=== PATIENT | female | born 1955 | race Caucasian/White ===

== ENCOUNTER → 2016-05-27 | Outpatient (CLI) | payer OTHER ==
[~2016-05-27] MED LIST: COLACE100 MG PO; DULCOLAX STOOL100 MG PO; FISH OIL 1,001000 M2 PO; PERCOCET 10-321 EACH PO; TYLENOL P.M. E1 EAC3 PO; UNICOMPLEX M TA1 TA1 PO; XARELTO10 MG PO; ZYRTEC 10 MG TA10 MG PO
== END ==
LOC: RAD 05-20 16:04
DX: Z12.31 Encounter for screening mammogram for malignant neoplasm of breast (principal)

== ENCOUNTER → 2016-05-30 | Outpatient (CLI) | payer OTHER ==
--- NOTE | ~2016-05-30 | EKG ---
[address] [address] ELECTROCARDIOGRAM REPORT Name: MARIS FARNSWORTH Lynsey Room #: REG ANNAMARIE Juanjose#: [id number] Admission: 05/30/16 Attend Phys: Ash Augustin MD Discharge: Date of : 59 Report #: [id number] THIS REPORT FOR: //name// [facility] Test Date: 2016-06-02 Test Time: 09:58:13 Pat Name: MARIS FARNSWORTH Department: Room: Gender: F Barrel Reamer: Jono LIRA : 1955 Requested By: Ash Augustin Order Number: [id number] MD: Eloy Loera Measurements Intervals [place] Rate: 69 P: 72 NH: 135 QRS: 49 QRSD: 95 T: 59 QT: 405 QTc: 434 Interpretive Statements Sinus rhythm No previous ECG available for comparison Electronically Signed On 06-02-2016 11:21:56 ASSOCIATE PASTOR by Eloy Loera [email or web address] <ELECTRONICALLY SIGNED> By: Eloy Loera MD 06/02/16 1121 0958 0958 Eloy Loera MD /BEENA
== END ==
LOC: HYPER 07:59
DX: T81.31XD Disruption of external operation (surgical) wound, not elsewhere classified, subsequent encounter (principal); M19.90 Unspecified osteoarthritis, unspecified site; Z85.828 Personal history of other malignant neoplasm of skin; Y83.8 Other surgical procedures as the cause of abnormal reaction of the patient, or of later complication, without mention of misadventure at the time of the procedure

== ENCOUNTER → 2016-06-02 | Outpatient (CLI) | payer OTHER ==
--- NOTE | ~2016-06-02 | EKG ---
[address] [address] ELECTROCARDIOGRAM REPORT Name: MARIS FARNSWORTH Lynsey [facility] #[id number] Admission: 06/02/16 Attend Phys: Ash Augustin MD Discharge: Date of : 59 Report #: [id number] THIS REPORT FOR: //name// [facility] Test Date: 2016-06-02 Test Time: 09:58:13 Pat Name: MARIS FARNSWORTH Department: Room: Gender: F Production Internship: Jono LIRA : 1955 Requested By: Ash Augustin Order Number: [id number] MD: Eloy Loera Measurements Intervals [place] Rate: 69 P: 72 HI: 135 QRS: 49 QRSD: 95 T: 59 QT: 405 QTc: 434 Interpretive Statements Sinus rhythm Electronically Signed On 06-02-2016 11:21:56 SEPHORA OPERATIONS CONSULTANT by Eloy Loera No previous ECG available for comparison Electronically Signed On 06-03-2016 15:55:26 SEPHORA OPERATIONS CONSULTANT by Eloy Loera [email or web address] <ELECTRONICALLY SIGNED> By: Eloy Loera MD 06/03/16 1555 0958 0958 Eloy Loera MD /BEENA
== END ==
LOC: RAD 09:15
DX: C92 Myeloid leukemia (principal); T81.89XA Other complications of procedures, not elsewhere classified, initial encounter; T81.30XA Disruption of wound, unspecified, initial encounter

== ENCOUNTER → 2016-06-16 | Outpatient (CLI) | payer OTHER | LOC: HYPER 06:57 | DX: T81.31XA Disruption of external operation (surgical) wound, not elsewhere classified, initial encounter (principal); C92 Myeloid leukemia; L59.8 Other specified disorders of the skin and subcutaneous tissue related to radiation; Y83.8 Other surgical procedures as the cause of abnormal reaction of the patient, or of later complication, without mention of misadventure at the time of the procedure ==

== ENCOUNTER → 2016-08-04 | Outpatient (CLI) | payer OTHER | LOC: HYPER 08-03 15:45 | DX: T81.31XD Disruption of external operation (surgical) wound, not elsewhere classified, subsequent encounter (principal); M19.90 Unspecified osteoarthritis, unspecified site; Z85.828 Personal history of other malignant neoplasm of skin; Z96.651 Presence of right artificial knee joint; Y83.8 Other surgical procedures as the cause of abnormal reaction of the patient, or of later complication, without mention of misadventure at the time of the procedure ==

== ENCOUNTER → 2016-08-11 | Outpatient (CLI) | payer OTHER | LOC: HYPER 07:05 | DX: T81.31XA Disruption of external operation (surgical) wound, not elsewhere classified, initial encounter (principal); L59.8 Other specified disorders of the skin and subcutaneous tissue related to radiation; C92 Myeloid leukemia; M19.90 Unspecified osteoarthritis, unspecified site; Y83.8 Other surgical procedures as the cause of abnormal reaction of the patient, or of later complication, without mention of misadventure at the time of the procedure ==

== ENCOUNTER → 2016-08-18 | Outpatient (CLI) | payer OTHER | LOC: HYPER 06:56 | DX: T81.31XD Disruption of external operation (surgical) wound, not elsewhere classified, subsequent encounter (principal); M19.90 Unspecified osteoarthritis, unspecified site; Z85.828 Personal history of other malignant neoplasm of skin; Z96.651 Presence of right artificial knee joint; Y83.8 Other surgical procedures as the cause of abnormal reaction of the patient, or of later complication, without mention of misadventure at the time of the procedure ==

== ENCOUNTER → 2016-08-26 | Outpatient (CLI) | payer OTHER | LOC: HYPER 16:28 | DX: T81.31XA Disruption of external operation (surgical) wound, not elsewhere classified, initial encounter (principal); L59.8 Other specified disorders of the skin and subcutaneous tissue related to radiation; C92 Myeloid leukemia; M19.90 Unspecified osteoarthritis, unspecified site; Y83.8 Other surgical procedures as the cause of abnormal reaction of the patient, or of later complication, without mention of misadventure at the time of the procedure ==

== ENCOUNTER → 2016-08-29 | Outpatient (CLI) | payer OTHER | LOC: HYPER 08:22 | DX: T81.31XD Disruption of external operation (surgical) wound, not elsewhere classified, subsequent encounter (principal); L59.8 Other specified disorders of the skin and subcutaneous tissue related to radiation; M19.90 Unspecified osteoarthritis, unspecified site; Z96.651 Presence of right artificial knee joint; Z85.831 Personal history of malignant neoplasm of soft tissue; Y83.8 Other surgical procedures as the cause of abnormal reaction of the patient, or of later complication, without mention of misadventure at the time of the procedure; Y84.2 Radiological procedure and radiotherapy as the cause of abnormal reaction of the patient, or of later complication, without mention of misadventure at the time of the procedure ==

== ENCOUNTER → 2016-09-03 | Outpatient (CLI) | payer OTHER | LOC: HYPER 07:06 | DX: T81.31XD Disruption of external operation (surgical) wound, not elsewhere classified, subsequent encounter (principal); L59.8 Other specified disorders of the skin and subcutaneous tissue related to radiation; M19.90 Unspecified osteoarthritis, unspecified site; Z85.828 Personal history of other malignant neoplasm of skin; Y84.2 Radiological procedure and radiotherapy as the cause of abnormal reaction of the patient, or of later complication, without mention of misadventure at the time of the procedure ==

== ENCOUNTER → 2016-09-15 | Outpatient (CLI) | payer OTHER | LOC: HYPER 07:09 | DX: T81.31XD Disruption of external operation (surgical) wound, not elsewhere classified, subsequent encounter (principal); M19.90 Unspecified osteoarthritis, unspecified site; Z96.651 Presence of right artificial knee joint; Z85.831 Personal history of malignant neoplasm of soft tissue; Y83.8 Other surgical procedures as the cause of abnormal reaction of the patient, or of later complication, without mention of misadventure at the time of the procedure ==

== ENCOUNTER → 2016-09-29 | Outpatient (CLI) | payer OTHER | LOC: HYPER 07:05 | DX: T81.31XA Disruption of external operation (surgical) wound, not elsewhere classified, initial encounter (principal); C92 Myeloid leukemia; L59.8 Other specified disorders of the skin and subcutaneous tissue related to radiation; M19.90 Unspecified osteoarthritis, unspecified site; Y83.8 Other surgical procedures as the cause of abnormal reaction of the patient, or of later complication, without mention of misadventure at the time of the procedure ==

== ENCOUNTER → 2016-10-17 | Outpatient (CLI) | payer OTHER | LOC: HYPER 07:54 | DX: T81.31XA Disruption of external operation (surgical) wound, not elsewhere classified, initial encounter (principal); L59.8 Other specified disorders of the skin and subcutaneous tissue related to radiation; C92 Myeloid leukemia; M19.90 Unspecified osteoarthritis, unspecified site; Z85.828 Personal history of other malignant neoplasm of skin; Y83.8 Other surgical procedures as the cause of abnormal reaction of the patient, or of later complication, without mention of misadventure at the time of the procedure ==

== ENCOUNTER → 2016-10-27 | Outpatient (CLI) | payer OTHER | LOC: HYPER 07:15 | DX: T81.31XD Disruption of external operation (surgical) wound, not elsewhere classified, subsequent encounter (principal); C92 Myeloid leukemia; L59.8 Other specified disorders of the skin and subcutaneous tissue related to radiation; M19.90 Unspecified osteoarthritis, unspecified site; Z85.828 Personal history of other malignant neoplasm of skin; Y83.8 Other surgical procedures as the cause of abnormal reaction of the patient, or of later complication, without mention of misadventure at the time of the procedure ==

== ENCOUNTER → 2016-11-10 | Outpatient (CLI) | payer OTHER | LOC: HYPER 07:00 | DX: T81.31XD Disruption of external operation (surgical) wound, not elsewhere classified, subsequent encounter (principal); M19.90 Unspecified osteoarthritis, unspecified site; Z85.831 Personal history of malignant neoplasm of soft tissue; Z85.6 Personal history of leukemia; Z96.651 Presence of right artificial knee joint; Y83.8 Other surgical procedures as the cause of abnormal reaction of the patient, or of later complication, without mention of misadventure at the time of the procedure ==

== ENCOUNTER → 2016-11-24 | Outpatient (CLI) | payer OTHER | LOC: HYPER 06:53 | DX: T81.31XD Disruption of external operation (surgical) wound, not elsewhere classified, subsequent encounter (principal); M19.90 Unspecified osteoarthritis, unspecified site; L59.8 Other specified disorders of the skin and subcutaneous tissue related to radiation; Z96.651 Presence of right artificial knee joint; Z85.831 Personal history of malignant neoplasm of soft tissue; Y83.8 Other surgical procedures as the cause of abnormal reaction of the patient, or of later complication, without mention of misadventure at the time of the procedure ==

== ENCOUNTER → 2016-12-08 | Outpatient (CLI) | payer OTHER | LOC: HYPER 06:48 | DX: T81.31XA Disruption of external operation (surgical) wound, not elsewhere classified, initial encounter (principal); L59.8 Other specified disorders of the skin and subcutaneous tissue related to radiation; M19.90 Unspecified osteoarthritis, unspecified site; Z85.828 Personal history of other malignant neoplasm of skin; Y83.8 Other surgical procedures as the cause of abnormal reaction of the patient, or of later complication, without mention of misadventure at the time of the procedure ==

== ENCOUNTER → 2016-12-16 | Outpatient (CLI) | payer OTHER ==
[2016-12-16 07:50] LABS: ABSOLUTE NEUTROPHILS 3.1 thou/uL (1.4-8.2); BASOPHILS 1.2 % (0.0-2.0); EOSINOPHILS 3.3 % (0.0-3.0); HEMATOCRIT 38.4 % (37.0-47.0); HEMOGLOBIN 13.3 gm/dL (12.0-15.0); LYMPHOCYTES 32.3 % (24.0-44.0); MCH 29.2 pg (26.0-34.0); MCHC 34.5 g/dL (28.0-37.0); MCV 84.7 fL (80.0-100.0); MONOCYTES 5.7 % (1.0-8.0); PLATELET COUNT 257 thou/uL (150-400); POLYS 57.5 % (36.0-66.0); RBC 4.54 mil/uL (4.20-5.00); RDW 13.3 % (10.5-14.5); WBC 5.4 thou/uL (4.0-11.0)
[2016-12-16 07:51] LABS: MANUAL DIFF NO
[2016-12-16 08:01] LABS: CALCIUM 9.1 mg/dL (8.5-10.1); CREATININE 0.8 mg/dL (0.6-1.0); POTASSIUM 4.4 mmol/L (3.5-5.1)
[2016-12-16 08:07] LABS: ALBUMIN 3.8 g/dL (3.4-5.0); TOTAL BILIRUBIN 0.5 mg/dL (<0.1-1.0)
== END ==
LOC: CAT 07:10
PROVIDERS: Internal Medicine Hematology & Oncology
DX: C49.22 Malignant neoplasm of connective and soft tissue of left lower limb, including hip (principal); E07.9 Disorder of thyroid, unspecified; T81.30XA Disruption of wound, unspecified, initial encounter

== ENCOUNTER → 2016-12-22 | Outpatient (CLI) | payer OTHER | LOC: HYPER 06:54 | DX: T81.31XD Disruption of external operation (surgical) wound, not elsewhere classified, subsequent encounter (principal); C92 Myeloid leukemia; L59.8 Other specified disorders of the skin and subcutaneous tissue related to radiation; M19.90 Unspecified osteoarthritis, unspecified site; Y83.8 Other surgical procedures as the cause of abnormal reaction of the patient, or of later complication, without mention of misadventure at the time of the procedure ==

== ENCOUNTER → 2016-12-25 | Outpatient (CLI) | payer OTHER | LOC: MRI 07:05 | DX: Z87.898 Personal history of other specified conditions (principal) ==

== ENCOUNTER → 2017-01-06 | Outpatient (CLI) | payer OTHER | LOC: HYPER 07:04 | DX: T81.31XD Disruption of external operation (surgical) wound, not elsewhere classified, subsequent encounter (principal); L59.8 Other specified disorders of the skin and subcutaneous tissue related to radiation; C92 Myeloid leukemia; M19.90 Unspecified osteoarthritis, unspecified site; Y83.8 Other surgical procedures as the cause of abnormal reaction of the patient, or of later complication, without mention of misadventure at the time of the procedure ==

== ENCOUNTER → 2017-01-20 | Outpatient (CLI) | payer OTHER | LOC: HYPER 07:23 | DX: T81.31XD Disruption of external operation (surgical) wound, not elsewhere classified, subsequent encounter (principal); L59.8 Other specified disorders of the skin and subcutaneous tissue related to radiation; M19.90 Unspecified osteoarthritis, unspecified site; Z96.651 Presence of right artificial knee joint; Z85.831 Personal history of malignant neoplasm of soft tissue; Y83.8 Other surgical procedures as the cause of abnormal reaction of the patient, or of later complication, without mention of misadventure at the time of the procedure ==

== ENCOUNTER → 2017-01-28 | Outpatient (CLI) | payer OTHER | LOC: HYPER 06:43 | DX: T81.31XD Disruption of external operation (surgical) wound, not elsewhere classified, subsequent encounter (principal); L59.8 Other specified disorders of the skin and subcutaneous tissue related to radiation; C92 Myeloid leukemia; M19.90 Unspecified osteoarthritis, unspecified site; Z96.651 Presence of right artificial knee joint; Y83.8 Other surgical procedures as the cause of abnormal reaction of the patient, or of later complication, without mention of misadventure at the time of the procedure; Y84.2 Radiological procedure and radiotherapy as the cause of abnormal reaction of the patient, or of later complication, without mention of misadventure at the time of the procedure ==

== ENCOUNTER → 2017-02-23 | Outpatient (CLI) | payer OTHER | LOC: HYPER 06:57 | DX: T81.31XD Disruption of external operation (surgical) wound, not elsewhere classified, subsequent encounter (principal); L59.8 Other specified disorders of the skin and subcutaneous tissue related to radiation; C92 Myeloid leukemia; M19.90 Unspecified osteoarthritis, unspecified site; Y83.8 Other surgical procedures as the cause of abnormal reaction of the patient, or of later complication, without mention of misadventure at the time of the procedure ==

== ENCOUNTER → 2017-03-16 | Outpatient (CLI) | payer OTHER | LOC: HYPER 06:48 | DX: T81.31XD Disruption of external operation (surgical) wound, not elsewhere classified, subsequent encounter (principal); L59.8 Other specified disorders of the skin and subcutaneous tissue related to radiation; C92 Myeloid leukemia; M19.90 Unspecified osteoarthritis, unspecified site; Y84.2 Radiological procedure and radiotherapy as the cause of abnormal reaction of the patient, or of later complication, without mention of misadventure at the time of the procedure; Y83.8 Other surgical procedures as the cause of abnormal reaction of the patient, or of later complication, without mention of misadventure at the time of the procedure ==

== ENCOUNTER → 2017-04-02 | Outpatient (CLI) | payer OTHER | LOC: HYPER 08:10 | DX: T81.31XD Disruption of external operation (surgical) wound, not elsewhere classified, subsequent encounter (principal); M19.90 Unspecified osteoarthritis, unspecified site; Z85.831 Personal history of malignant neoplasm of soft tissue; Z96.651 Presence of right artificial knee joint; Y83.8 Other surgical procedures as the cause of abnormal reaction of the patient, or of later complication, without mention of misadventure at the time of the procedure ==

== ENCOUNTER → 2017-04-08 | Outpatient (CLI) | payer OTHER | LOC: HYPER 07:00 | DX: T81.31XD Disruption of external operation (surgical) wound, not elsewhere classified, subsequent encounter (principal); C92 Myeloid leukemia; L59.8 Other specified disorders of the skin and subcutaneous tissue related to radiation; M19.90 Unspecified osteoarthritis, unspecified site; Z96.651 Presence of right artificial knee joint; Y83.8 Other surgical procedures as the cause of abnormal reaction of the patient, or of later complication, without mention of misadventure at the time of the procedure; Y84.2 Radiological procedure and radiotherapy as the cause of abnormal reaction of the patient, or of later complication, without mention of misadventure at the time of the procedure ==

== ENCOUNTER → 2017-04-15 | Outpatient (CLI) | payer OTHER | LOC: HYPER 07:56 | DX: L59.8 Other specified disorders of the skin and subcutaneous tissue related to radiation (principal); M19.90 Unspecified osteoarthritis, unspecified site; Y83.8 Other surgical procedures as the cause of abnormal reaction of the patient, or of later complication, without mention of misadventure at the time of the procedure; Z85.828 Personal history of other malignant neoplasm of skin; T81.31XD Disruption of external operation (surgical) wound, not elsewhere classified, subsequent encounter ==

== ENCOUNTER → 2017-04-21 | Outpatient (CLI) | payer OTHER | LOC: CAT | DX: C49.22 Malignant neoplasm of connective and soft tissue of left lower limb, including hip (principal); E04.2 Nontoxic multinodular goiter; R07.9 Chest pain, unspecified ==

== ENCOUNTER → 2017-04-29 | Outpatient (CLI) | payer OTHER | LOC: HYPER 06:44 | DX: T81.31XD Disruption of external operation (surgical) wound, not elsewhere classified, subsequent encounter (principal); L59.8 Other specified disorders of the skin and subcutaneous tissue related to radiation; M19.90 Unspecified osteoarthritis, unspecified site; Z96.651 Presence of right artificial knee joint; Y83.8 Other surgical procedures as the cause of abnormal reaction of the patient, or of later complication, without mention of misadventure at the time of the procedure; Y84.2 Radiological procedure and radiotherapy as the cause of abnormal reaction of the patient, or of later complication, without mention of misadventure at the time of the procedure ==

== ENCOUNTER → 2017-05-06 | Outpatient (CLI) | payer OTHER ==
[~2017-05-06] MED LIST changes: +CENTRUM SILVER1 EAC4 PO
== END ==
LOC: HYPER 06:49
DX: T81.31XD Disruption of external operation (surgical) wound, not elsewhere classified, subsequent encounter (principal); L59.8 Other specified disorders of the skin and subcutaneous tissue related to radiation; M19.90 Unspecified osteoarthritis, unspecified site; Z96.651 Presence of right artificial knee joint; Z85.828 Personal history of other malignant neoplasm of skin; Y84.2 Radiological procedure and radiotherapy as the cause of abnormal reaction of the patient, or of later complication, without mention of misadventure at the time of the procedure; Y83.8 Other surgical procedures as the cause of abnormal reaction of the patient, or of later complication, without mention of misadventure at the time of the procedure

== ENCOUNTER → 2017-05-12 | Outpatient (CLI) | payer OTHER | LOC: HYPER 06:55 | DX: T81.31XD Disruption of external operation (surgical) wound, not elsewhere classified, subsequent encounter (principal); S71.102D Unspecified open wound, left thigh, subsequent encounter; M19.90 Unspecified osteoarthritis, unspecified site; Z96.651 Presence of right artificial knee joint; Z85.828 Personal history of other malignant neoplasm of skin; Y83.8 Other surgical procedures as the cause of abnormal reaction of the patient, or of later complication, without mention of misadventure at the time of the procedure ==

== ENCOUNTER → 2017-05-20 | Outpatient (CLI) | payer OTHER ==
[~2017-05-20] MED LIST changes: +SENNA8.6 MG PO
== END ==
LOC: HYPER
DX: T81.31XD Disruption of external operation (surgical) wound, not elsewhere classified, subsequent encounter (principal); L59.8 Other specified disorders of the skin and subcutaneous tissue related to radiation; M19.90 Unspecified osteoarthritis, unspecified site; Z85.828 Personal history of other malignant neoplasm of skin; Y83.8 Other surgical procedures as the cause of abnormal reaction of the patient, or of later complication, without mention of misadventure at the time of the procedure

== ENCOUNTER 2017-05-25 01:32 | Inpatient (IN) | payer OTHER ==
[2017-05-13 11:39] LABS: URINE BILIRUBIN NEGATIVE (Negative); URINE BLOOD NEGATIVE (Negative); URINE CLARITY CLEAR; URINE COLOR YELLOW; URINE GLUCOSE-RANDOM* NEGATIVE (Negative); URINE KETONES NEGATIVE (Negative); URINE LEUKOCYTES-REFLEX NEGATIVE (Negative); URINE NITRITE-REFLEX NEGATIVE (Negative); URINE PROTEIN (DIPSTICK) NEGATIVE (Negative); URINE UROBILINOGEN 0.2 E.U./dl (0.2-1.0)
[2017-05-13 11:43] LABS: HEMATOCRIT 39.4 % (37.0-47.0); HEMOGLOBIN 13.1 gm/dL (12.0-15.0); MCH 28.4 pg (26.0-34.0); MCHC 33.2 g/dL (28.0-37.0); MCV 85.6 fL (80.0-100.0); RBC 4.61 mil/uL (4.20-5.00); RDW 13.8 % (10.5-14.5); WBC 7.5 thou/uL (4.0-11.0)
[2017-05-13 11:59] LABS: ALBUMIN 3.9 g/dL (3.4-5.0); CALCIUM 9.4 mg/dL (8.5-10.1); CREATININE 0.7 mg/dL (0.6-1.0); POTASSIUM 4.5 mmol/L (3.5-5.1)
[2017-05-13 12:06] LABS: PROTIME 10.4 Seconds (9.3-11.4)
[~2017-05-25] VITALS: Ht 165.1 cm; Wt 103.0 kg
--- NOTE | ~2017-05-25 | O ---
[facility] [place] [address] OPERATIVE REPORT Name: MARIS FARNSWORTH Room #: 150-10 ADM IN M.R.#: [id number] Admission: 05/25/17 Attend Phys: Jose Maria Escalante MD Discharge: Date of : 59 Report #: [id number] THIS REPORT FOR: //name// CC: Jose Maria Dutta DATE OF SERVICE: 05/25/2017 PREOPERATIVE DIAGNOSIS: End-stage degenerative arthritis, left knee. POSTOPERATIVE DIAGNOSIS: End-stage degenerative arthritis, left knee. PROCEDURE: Left total knee arthroplasty. SURGEON: Jose Maria Escalante MD. 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 She has developed gradually progressive degenerative arthritis in both knees and underwent right total knee replacement in the past with good result. 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 We have elected to go ahead with her knee replacement at this point. We have discussed that she is at slightly increased risk for postoperative problems or infection given this history; however, it appears that wound has healed in nicely, and there is no evidence of infection nor any other significant ongoing problems at this point. DESCRIPTION OF PROCEDURE: The patient was taken to the operating room where she was placed under general anesthesia. Prophylactic intravenous antibiotics were administered. The left leg was carefully prepped and draped. The small superficial wound at the posterior thigh was carefully cleaned and then covered with a sterile dressing. This dressing was then included in the prep to create a fully sterile field. The stockinette was used to exclude the posterior aspect of the thigh from the area of surgery further limiting any potential for contamination. A thigh tourniquet was inflated to 300 mmHg. An anterior longitudinal skin incision was made and carried through the medial parapatellar retinaculum. The patella was reflected laterally where the marked degenerative change in all 3 compartments was noted. This was particularly severe at the patella where she also has a very atrophic patella with a very thin patella measuring only about 12-14 mm in thickness. The ustyme and yeppt knee system was utilized. Intramedullary guides were used on both the femur and the tibia. The femur was cut in 5 degrees of valgus and the tibia cut perpendicular to the long axis of the bone. The femur seemed best suited for a size [address] [address] OPERATIVE REPORT Name: MARIS FARNSWORTH Room #: 150-10 [facility] IN .R.#: [id number] Admission: 05/25/17 Attend Phys: Jose Maria Escalante MD Discharge: Date of : 59 Report #: [id number] component. The tibia was best suited for a size 3 tibial component, a 9 mm polyethylene insert fit nicely. This resulted in full knee extension and satisfactory stability through a full arc of motion with flexion beyond 130 degrees. The patellar surface was very carefully resected given the very delicate thin nature of her patella. A 32 mm patellar button seemed to fit nicely and appropriate anchor holes were created. Once the trial reduction was completed, the knee was passed through a full arc of motion, and the patella seemed to tip slightly laterally. A limited lateral retinacular release was performed which seemed to improve this nicely. The trial components were removed. The bony surfaces were thoroughly irrigated and dried. The intramedullary canal was blocked with bone block on both the femoral and tibial sides. The size 3 Jasmin left nonporous tibial base plate was inserted into the proximal tibia using methyl methacrylate cement. This seated nicely and appeared to be secure. Excess cement was removed from around its margin. The 9 mm polyethylene insert was then inserted using the Legion cruciate retaining high flexion insert. This seated nicely and appeared to be secure. The size 4 left cruciate retaining Legion femoral component was then inserted on to the distal femur. It was impacted into position using appropriate anchor holes and a small amount of cement at the distal aspect. This seated nicely and appeared to be secure. Excess cement was removed from around its margin. The patella was resurfaced using a 32 mm patellar button using the Jasmin II Negrete and Nephew component with appropriate anchor holes and methyl methacrylate cement. The implant was secured with a patellar clamp until the cement had fully hardened. Once the cement was firm, alignment, range of motion and stability were once again assessed. The knees demonstrated full knee extension and flexion beyond 130 degrees with satisfactory stability. The patella seemed to track nicely and appeared to be stable. A single Hemovac was left in the wound exiting through a separate stab incision. The tourniquet was then deflated after a total tourniquet time of 58 minutes. The fascia was closed with multiple #1 Vicryl sutures. The subcutaneous tissues were closed with 0 Monocryl. The skin was closed with skin montserrat. A sterile dressing was applied. The patient was awakened and returned to recovery room in good condition. <ELECTRONICALLY SIGNED> By: Jose Maria Escalante MD 05/25/17 1258 1157 1243 Jose Maria Escalante MD /parish
--- NOTE | ~2017-05-25 | D ---
[facility] [place] [address] DISCHARGE SUMMARY Name: MARIS FARNSWORTH Room #: 405-P [facility] IN M.R.#: [id number] Admission: 05/25/17 Attend Phys: Jose Maria Escalante MD Discharge: 05/29/17 Date of : 59 Report #: [id number] THIS REPORT FOR: //name// CC: Jose Maria Dutta DATE OF SERVICE: 05/29/2017 FINAL DIAGNOSES: 1. End-stage degenerative arthritis of left knee. 2. Peroneal neurapraxia. OPERATIVE PROCEDURE: Left total knee arthroplasty. HISTORY: This fit, active 61-year-old female has progressive degenerative arthritis in both knees. She underwent a right total knee replacement in the past with good result. She was planning to go ahead with the left side, but this was delayed due to a myosarcoma, which was diagnosed and removed from the posterior aspect of the left thigh about 1 year ago. She had radiation treatment and a slowly healing wound, which delayed further care with regard to the knee. This has nearly closed leaving small clean, granulating bed and she is felt safe to go ahead with left total knee replacement at this time. HOSPITAL COURSE: The patient was admitted and taken to the operating room. On 05/25/2017, she underwent left total knee arthroplasty, which in general went well. There were no apparent problems or complications. Postoperatively, however, she has had rather significant weakness with dorsiflexion of the left foot, suggesting a peroneal neurapraxia. I have noted that we had a fairly low pressure tourniquet at 300 mmHg and the tourniquet was up for a less than 60 minutes. There were no other unusual problems during the procedure. The clinical findings and x-rays I have looked good. She did make good progress with therapy and rapidly achieved independent ambulation, but is frustrated with her dorsiflexion weakness making her ambulation a bit more awkward. Aside from that weakness, however, she seems to have good strength at the hip and improving strength at the quadriceps with good knee range of motion. She has good plantar flexion strength and sensation throughout the leg including distribution of the peroneal nerve over the calf and dorsum of the foot appeared to be normal. Her pain has been well controlled with oral analgesics. She does have mild constipation, but this seems to be improving with stool softeners and mild gentle laxatives. She spent 1 extra night given the weakness and some difficulty with ambulation, but today, she feels she is making satisfactory progress and anticipate she can make adequate progress at home with the assistance of home visiting therapy. 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 Therefore, I am confident she and her other co-workers can make excellent progress with a home therapy program. [address] [address] DISCHARGE SUMMARY Name: MARIS FARNSWORTH Room #: 405-P DIS IN M.R.#: [id number] Admission: 05/25/17 Attend Phys: Jose Maria Escalante MD Discharge: 05/29/17 Date of : 59 Report #: [id number] DISCHARGE MEDICATIONS: Include Xarelto 10 mg daily, hydrocodone 10/325 one q.4h. p.r.n. for pain, Colace 100 mg b.i.d. She will continue a regular diet. She will advance activities as comfort and strength will allow, to continue therapy at home with weightbearing as tolerated and work on range of motion and strengthening. I have asked her to call me should there be any problems over the coming weekend and we will plan to see her back in the office on either Thursday or Thursday simply to check up on her progress at that point. <ELECTRONICALLY SIGNED> By: Jose Maria Escalante MD 06/01/17 0741 1533 1819 Jose Maria Escalante MD /nt
--- NOTE | ~2017-05-25 | HC ---
[facility] [address] [place] [address] CONSULTATION Name: MARIS FARNSWORTH Room #: 405-P [facility] IN M.R.#: [id number] Admission: 05/25/17 Attend Phys: Jose Maria Escalante MD Discharge: Date of : 59 Report #: [id number] THIS REPORT FOR: //name// CC: Jose Maria Dutta DATE OF SERVICE: 05/26/2017 PERSONAL PHYSICIAN: None on staff. CHIEF COMPLAINT: Left posterior thigh wound. HISTORY OF PRESENT ILLNESS: This is a 61-year-old white female who we have been following in the outpatient wound clinic for several months for a surgical wound in the left posterior thigh region secondary to removal of a sarcoma and subsequent radiation therapy. The patient underwent a course of hyperbaric oxygen treatments and the previously very large wound has now essentially resolved. The patient has a small area of superficial granulation tissue in approximately size of a quarter over the posterior left thigh. The patient is now status post total knee arthroplasty on the left and we have been asked to follow the patient for the wound while she is here. PAST MEDICAL HISTORY: Significant once again for the sarcoma on her left posterior thigh, treated with radiation. The patient is status post hysterectomy and degenerative joint disease. CURRENT MEDICATIONS: Multiple, I reviewed the patient's medication list. DRUG ALLERGIES: include BENZOCAINE and ADHESIVES. SOCIAL HISTORY: The patient does not smoke or drink alcohol. FAMILY HISTORY: Not pertinent to current medical condition. REVIEW OF SYSTEMS: CONSTITUTIONAL: The patient denies fevers or chills. NEUROLOGIC: The patient denies numbness, tingling, or weakness in arms or legs. EYES: No complaints. ENT: No complaints. CARDIAC: The patient has no chest pain, palpitations, or peripheral edema. RESPIRATORY: The patient denies shortness of breath, cough, or wheezes. GASTROINTESTINAL: The patient has nausea, vomiting, or abdominal pain. GENITOURINARY: The patient denies urgency or frequency. MUSCULOSKELETAL: The patient has mild pain around the surgical incision of the left total knee arthroplasty. SKIN: There is a surgical wound with a dry dressing in place over the incision [facility] [address] [place] [address] CONSULTATION Name: MARIS FARNSWORTH Room #: 405-P [facility] IN M.R.#: [id number] Admission: 05/25/17 Attend Phys: Jose Maria Escalante MD Discharge: Date of : 59 Report #: [id number] of the knee as well as the chronic wound on the left posterior thigh. PHYSICAL EXAMINATION: VITAL SIGNS: Temperature 36.6, pulse 70, respirations 18, and BP 104/57. GENERAL: This is an alert, oriented x3, and pleasant white female who is absolutely in no distress. HEENT: Normocephalic, atraumatic. Extraocular movements are moist. Pupils are round. Sclerae are white. LUNGS: Clear. HEART: Regular. ABDOMEN: Soft, otherwise nontender. EXTREMITIES: The patient moves all extremities without difficulty. Evaluation of left lower extremity reveals distal pulses to be intact. Left foot is warm and dry. There is trace edema in the left foot. Evaluation of the surgical incision on left knee reveals a DEVAUGHN negative pressure wound therapy device in place, which appears to be functioning well. Surgical drainage is in place, Hemovac with minimal bloody drainage. Evaluation of the posterior thigh wound reveals a clean and granulating wound approximately 2 x 2 cm with no depth. No signs of infection. NEUROLOGIC: Cranial nerves 2-12 are grossly intact. Motor and sensory grossly intact. LABORATORY VALUES: White count 13.5, hemoglobin 10.2. Albumin is 3.9. IMPRESSION: 1. Chronic surgical wound to the left posterior thigh, status post excision of sarcoma and radiation therapy. 2. Radiation soft tissue damage. 3. Status post total left knee arthroplasty. PLAN: At this time, we will continue with a foam dressing to the left posterior thigh wound. The negative pressure device was left in place at this time and will be followed by both myself and the orthopedic surgeons. We will continue with the Kerlix and Andrews wrap around the knee for compression. The patient will start physical and occupational therapy for strengthening. We will continue to maximize the patient's oral supplementation of protein for healing. I appreciate the ability to consult. <ELECTRONICALLY SIGNED> By: Ash Augustin MD 05/27/17 1316 1027 1252 Ash Augustin MD /nt
[~2017-05-25 01:32] MED LIST changes: -SENNA8.6 MG PO
[2017-05-25 09:14] VITALS: BP 158/84
[2017-05-25 13:35] VITALS: BP 127/75
[2017-05-25 16:00] VITALS: BP 111/64
[2017-05-25 19:45] VITALS: BP 126/74
[2017-05-26 00:04] VITALS: BP 119/54
[2017-05-26 04:50] VITALS: BP 97/52
[2017-05-26 06:46] LABS: HEMATOCRIT 30.6 % (37.0-47.0); HEMOGLOBIN 10.2 gm/dL (12.0-15.0); MCH 28.8 pg (26.0-34.0); MCHC 33.2 g/dL (28.0-37.0); MCV 86.7 fL (80.0-100.0); RBC 3.53 mil/uL (4.20-5.00); RDW 13.7 % (10.5-14.5); WBC 13.5 thou/uL (4.0-11.0)
[2017-05-26 08:49] LABS: CALCIUM 8.7 mg/dL (8.5-10.1); CREATININE 0.9 mg/dL (0.6-1.0); MAGNESIUM 1.8 mg/dL (1.8-2.4)
[2017-05-26] MEDS ORDERED: SENNA8.6 MG PO (09:14)
[2017-05-26 09:45] VITALS: BP 104/57
[2017-05-26 19:28] VITALS: BP 126/58
[2017-05-27 04:00] VITALS: BP 153/74
[2017-05-27 06:39] LABS: HEMATOCRIT 30.6 % (37.0-47.0); HEMOGLOBIN 10.4 gm/dL (12.0-15.0); MCH 29.1 pg (26.0-34.0); MCHC 34.1 g/dL (28.0-37.0); MCV 85.3 fL (80.0-100.0); RBC 3.58 mil/uL (4.20-5.00); RDW 13.7 % (10.5-14.5); WBC 9.7 thou/uL (4.0-11.0)
[2017-05-27 08:00] VITALS: BP 137/67
[2017-05-27 16:13] VITALS: BP 121/73
[2017-05-27 19:56] VITALS: BP 130/68
[2017-05-28] VITALS: BP 123/71
[2017-05-28 04:00] VITALS: BP 124/79
[2017-05-28 06:24] LABS: HEMATOCRIT 29.6 % (37.0-47.0); MCH 28.9 pg (26.0-34.0); MCHC 33.9 g/dL (28.0-37.0); MCV 85.3 fL (80.0-100.0); RBC 3.47 mil/uL (4.20-5.00); RDW 13.5 % (10.5-14.5); WBC 8.1 thou/uL (4.0-11.0)
[2017-05-28 10:21] VITALS: BP 125/63
[2017-05-28 19:20] VITALS: BP 139/81
[2017-05-29 04:00] VITALS: BP 148/69
[2017-05-29 08:00] VITALS: BP 140/85
[2017-05-29 15:47] VITALS: BP 140/85
[2017-05-29 15:48] VITALS: BP 140/85
[2017-05-29 16:00] VITALS: BP 146/79
== END 2017-05-29 16:25 | disposition home health service (06) | DRG 470 ==
LOC: PRE → 4N 07:17 → TBA 07:17 → PRE 08:53 → 4N 13:37 → ENTRNSPT 05-29 16:21 → 4N 05-29 16:25
PROVIDERS: Orthopaedic Surgery
PROC: 0SRD0J9 Replacement of Left Knee Joint with Synthetic Substitute, Cemented, Open Approach (ICD-10-PCS; principal; 2017-05-25)
DX: M17.12 Unilateral primary osteoarthritis, left knee (principal); T14.8XXA Other injury of unspecified body region, initial encounter; K59.00 Constipation, unspecified; Z90.710 Acquired absence of both cervix and uterus; X58.XXXA Exposure to other specified factors, initial encounter; Z88.8 Allergy status to other drugs, medicaments and biological substances; Y93.89 Activity, other specified; Y92.89 Other specified places as the place of occurrence of the external cause; Y99.8 Other external cause status; Z79.899 Other long term (current) drug therapy
CPT/HCPCS: 10790; 50010; 50101; 50415; 50954; 51130; 51225; 51412; 51771; 53364; 56525; 62110; 62900; 64042; 70005

== ENCOUNTER → 2018-03-18 | Outpatient (CLI) | payer OTHER ==
[~2018-03-18] MED LIST changes: +SENNA8.6 MG PO
[2018-03-18 09:31] LABS: CREATININE 0.8 mg/dL (0.6-1.0)
== END ==
LOC: CAT 08:39
DX: C49.9 Malignant neoplasm of connective and soft tissue, unspecified (principal); R91.1 Solitary pulmonary nodule

== ENCOUNTER → 2018-06-22 | Outpatient (CLI) | payer OTHER ==
[2018-06-22 08:20] LABS: CREATININE 0.7 mg/dL (0.6-1.0)
== END ==
LOC: CAT 07:50
PROVIDERS: Internal Medicine Hematology & Oncology
DX: R91.8 Other nonspecific abnormal finding of lung field (principal); C49.9 Malignant neoplasm of connective and soft tissue, unspecified; Z90.710 Acquired absence of both cervix and uterus; M17.12 Unilateral primary osteoarthritis, left knee

== ENCOUNTER → 2018-06-23 | Outpatient (CLI) | payer OTHER | LOC: RAD 02:18 | DX: Z12.31 Encounter for screening mammogram for malignant neoplasm of breast (principal) ==

== ENCOUNTER → 2018-11-01 | Outpatient (CLI) | payer OTHER ==
[2018-11-01 08:30] LABS: ABSOLUTE NEUTROPHILS 2.6 thou/uL (1.4-8.2); BASOPHILS 1.3 % (0.0-2.0); EOSINOPHILS 4.4 % (0.0-3.0); HEMATOCRIT 38.7 % (37.0-47.0); HEMOGLOBIN 12.9 gm/dL (12.0-15.0); LYMPHOCYTES 26.5 % (24.0-44.0); MCH 28.8 pg (26.0-34.0); MCHC 33.5 g/dL (28.0-37.0); MCV 86.1 fL (80.0-100.0); PLATELET COUNT 205 thou/uL (150-400); POLYS 57.8 % (36.0-66.0); RBC 4.49 mil/uL (4.20-5.00); WBC 4.5 thou/uL (4.0-11.0)
[2018-11-01 08:43] LABS: ALBUMIN 3.7 g/dL (3.4-5.0); CALCIUM 9.1 mg/dL (8.5-10.1); CREATININE 0.7 mg/dL (0.6-1.0); POTASSIUM 4.4 mmol/L (3.5-5.1); TOTAL BILIRUBIN 0.5 mg/dL (<0.1-1.0); TOTAL PROTEIN 7.5 g/dL (6.4-8.2)
== END ==
LOC: CAT 07:41
PROVIDERS: Internal Medicine Hematology & Oncology
DX: C49.9 Malignant neoplasm of connective and soft tissue, unspecified (principal); K44.9 Diaphragmatic hernia without obstruction or gangrene; E04.1 Nontoxic single thyroid nodule; Z90.710 Acquired absence of both cervix and uterus

== ENCOUNTER → 2018-12-20 | Outpatient (CLI) | payer OTHER | LOC: PET 11:41 | DX: C49.9 Malignant neoplasm of connective and soft tissue, unspecified (principal); R91.1 Solitary pulmonary nodule; Z91.09 Other allergy status, other than to drugs and biological substances ==

== ENCOUNTER → 2018-12-22 | Outpatient (CLI) | payer OTHER | LOC: MRI 07:07 | DX: Z08 Encounter for follow-up examination after completed treatment for malignant neoplasm (principal); Z96.652 Presence of left artificial knee joint; Z85.831 Personal history of malignant neoplasm of soft tissue ==

== ENCOUNTER → 2019-01-03 | Outpatient (CLI) | payer OTHER | LOC: ULTRA 12:31 | DX: E04.2 Nontoxic multinodular goiter (principal); C49.9 Malignant neoplasm of connective and soft tissue, unspecified ==

== ENCOUNTER → 2019-01-11 | Outpatient (CLI) | payer OTHER ==
--- NOTE | 2019-01-12 14:06 | PATH ---
[facility] [address] [place] [address] PATHOLOGY RPT PROCEDURE Name: MARIS FARNSWORTH Room #: REG MOHIT Cutler.#: [id number] Admission: 01/11/19 Date of : 59 Discharge: Report #: [id number] Path Case #: [id number] Note [facility] Accession Number: [id number] TESTS RESULT FLAG UNITS REF RANGE LAB Clinician Provided Cytology Information No. of containers..01 Other (Miscellaneous) Source: LT MEDIAL THYROID DIAGNOSIS: 02 LT MEDIAL THYROID NEGATIVE FOR MALIGNANT CELLS. BLAND FOLLICULAR CELLS AND SCANT LYMPHOCYTES ARE PRESENT. THIS INTERPRETATION INCLUDES EVALUATION OF A CELL BLOCK. COLLOID IS PRESENT. FINDINGS CONSISTENT WITH AN ADENOMATOID NODULE. Signed out by: 02 Angel Yo MD, Pathologist NPI- [id number] Performed by: 01 Darren Moore, Crime Scene Specialist ([facility]) Gross description: 01 25ML, RED, CLOUDY /LCS FLAG LEGEND: L-Low Normal,H-High Normal,LL-Alert Low,HH-Alert High <-Panic Low,>-Panic High,A-Abnormal,AA-Critical Abnormal Performed at: [address] [place] [address] Donald Arellano MD, [address] [address] Betzy Stephens MD, Specimen Comment: A courtesy copy of this report has been sent to Specimen Comment: [phone], . Specimen Comment: Report sent to Performed at: [address], [place], [place] [id number] MD Donald Arellano MD Phone: [phone]
--- NOTE | 2019-01-13 13:07 | PATH ---
[facility] [address] [place] [address] PATHOLOGY RPT PROCEDURE Name: MARIS FARNSWORTH Room #: REG [facility]..#: [id number] Admission: 01/11/19 Date of : 59 Discharge: Report #: [id number] Path Case #: [id number] Note [facility] Accession Number: [id number] TESTS RESULT FLAG UNITS REF RANGE LAB Clinician Provided Cytology Information No. of containers..01 Other (Miscellaneous) Source: LT LATERAL THYROID N DIAGNOSIS: LT LATERAL THYROID N NEGATIVE FOR MALIGNANT CELLS. BETHESDA CATEGORY II. SPECIMEN CONSISTS OF ABUNDANT BENIGN FOLLICULAR CELLS, HEMOSIDERIN-LADEN MACROPHAGES, SCANT COLLOID AND BLOOD. THE PATTERN IS CONSISTENT WITH ADENOMATOID NODULE. Pathologist ICD10: 02 E04.1 Signed out by: 02 Angel Yo MD, Pathologist NPI- [id number] Performed by: Fannie Mercer, Cleaning Laborer ([facility]) Gross description: 01 24 ML, RED, CLEAR /LCS FLAG LEGEND: L-Low Normal,H-High Normal,LL-Alert Low,HH-Alert High <-Panic Low,>-Panic High,A-Abnormal,AA-Critical Abnormal Performed at: [address] [place] [address] Donald Arellano MD, [address] [address] Betzy Stephens MD, Specimen Comment: A duplicate report has been generated due to demographic updates. Performed at: [address], [place], [place] [id number] MD Donald Arellano MD Phone: [phone]
== END ==
LOC: ULTRA 12:01
DX: E04.2 Nontoxic multinodular goiter (principal)

== ENCOUNTER → 2019-04-05 | Outpatient (CLI) | payer OTHER | LOC: CAT 07:51 | DX: C49.9 Malignant neoplasm of connective and soft tissue, unspecified (principal); R91.8 Other nonspecific abnormal finding of lung field ==